=== PATIENT | female | born 1970 | race Caucasian/White ===

== ENCOUNTER → 2016-11-25 | Outpatient (REF) | payer OTHER ==
[~2016-11-25] MED LIST: ZOLP10TA PO
[2016-11-25 11:45] LABS: BASOPHILS % (AUTO) 1 % (0-2); EOSINOPHILS % (AUTO) 0 % (0-4); LYMPHOCYTES # (AUTO) 0.9 X10^3; MEAN CORPUSCULAR HEMOGLOBIN 30.9 PG (26.0-34.0); MEAN CORPUSCULAR HGB CONC 34.3 g/dL (31.0-37.0); MEAN CORPUSCULAR VOLUME 90 FL (80-100); MEAN PLATELET VOLUME 10.5 FL (6.0-9.5); MONOCYTES # (AUTO) 0.3 X10^3; MONOCYTES % (AUTO) 6 % (3-11); NEUTROPHILS # (AUTO) 4.5 X10^3; NEUTROPHILS % (AUTO) 78 % (51-67); PLATELET COUNT 248 10^3uL (150-450); WHITE BLOOD COUNT 5.71 10^3uL (4.0-11.0)
[2016-11-25 12:13] LABS: ALBUMIN 5.3 g/dL (3.4-5.0); CALCULATED IONIZED CALCIUM 3.8 mg/dL (3.8-4.6); TOTAL PROTEIN 8.6 g/dL (6.4-8.5)
== END ==
LOC: LAB 10:53
PROVIDERS: ATTEND Nurse Practitioner Family
DX: N91.0 Primary amenorrhea (principal); Z13.6 Encounter for screening for cardiovascular disorders; E03.8 Other specified hypothyroidism
CPT/HCPCS: 80053; 80061; 84443; 84703; 85025

== ENCOUNTER → 2017-01-17 | Outpatient (CLI) | payer OTHER | LOC: RAD 16:42 | PROVIDERS: ATTEND Family Medicine | DX: M25.531 Pain in right wrist (principal) | CPT/HCPCS: 73110 ==

== ENCOUNTER → 2017-02-01 | Outpatient (CLI) | payer OTHER | LOC: RAD 12:04 | PROVIDERS: ATTEND Nurse Practitioner Family | DX: M25.531 Pain in right wrist (principal); S00.83XA Contusion of other part of head, initial encounter; S62.001A Unspecified fracture of navicular [scaphoid] bone of right wrist, initial encounter for closed fracture; W10.9XXA Fall (on) (from) unspecified stairs and steps, initial encounter | CPT/HCPCS: 70486; 73110 ==

== ENCOUNTER → 2017-04-05 | Outpatient (CLI) | payer OTHER ==
--- NOTE | 2017-04-05 11:58 | Diagnostic Imaging Report ---
PROCEDURE: CT right upper extremity without contrast. TECHNIQUE: Multiple contiguous axial images were obtained through the right upper extremity without the use of intravenous contrast. Sagittal and coronal reformations were then performed. INDICATION: Followup of nonhealing mid body navicular fracture. FINDINGS: Axial images with sagittal and coronal reformatting. The mid body navicular fractures again noted. There is lucency through the mid body. No significant intraosseous or periosteal reactive bony change noted. There is no significant sclerosis noted along the fracture line at this time. No sclerotic changes are seen to suggest the developing osteonecrosis of the scaphoid. Overall alignment is good with the radiocarpal joint as well as the articulating surface with the capitate. No evidence of the intercarpal ligament disruption on noncontrasted CT. Remaining carpal bones appear normal. IMPRESSION: 1. There is a nonhealing fracture of the mid body of the scaphoid. No evidence of significant callus formation. Overall alignment of the scaphoid does remain good. 2. No evidence of sclerotic change to suggest osteonecrosis at this time. Dictated by: Dictated on workstation # [id number]
== END ==
LOC: RAD 11:02
PROVIDERS: ATTEND Orthopaedic Surgery
DX: M79.641 Pain in right hand (principal); S62.001G Unspecified fracture of navicular [scaphoid] bone of right wrist, subsequent encounter for fracture with delayed healing; X58.XXXD Exposure to other specified factors, subsequent encounter
CPT/HCPCS: 73200